=== PATIENT | male | born 1955 | race Caucasian/White ===

== ENCOUNTER 2018-03-02 02:36 | Emergency (ER) | payer OTHER ==
[~2018-03-02] VITALS: Ht 182.9 cm; Wt 82.6 kg
--- NOTE | 2018-03-02 03:34 | Diagnostic Imaging Report ---
FOOT RIGHT COMPLETE HISTORY: Heel pain. COMPARISON: None FINDINGS: Bones: No displaced fracture. Osseous alignment is within normal limits. Joints: Mild degenerative changes of the midfoot. Soft tissues: The soft tissues appear unremarkable. IMPRESSION: No acute radiographic abnormality. Signed by: Dr. Jeff Cook M.D. on 03/02/2018 3:31 AM
== END 2018-03-02 13:50 | disposition home or self-care (01) ==
LOC: ER 02:36
DX: M79.671 Pain in right foot (principal); M13.871 Other specified arthritis, right ankle and foot; I10 Essential (primary) hypertension; J44.9 Chronic obstructive pulmonary disease, unspecified; Z91.5 Personal history of self-harm; F17.210 Nicotine dependence, cigarettes, uncomplicated
CPT/HCPCS: 99282